=== PATIENT | female | born 1975 | race Two or more races ===

== ENCOUNTER 2025-07-01 04:07 | Emergency (ER) | payer MEDICAID, SELFPAY ==
[2025-07-01 04:25] VITALS: BP 131/75; PULSE 90; RESP 19; TEMP 36.9; O2SAT 96
--- NOTE | 2025-07-01 05:04 | PD.EDANX ---
ED Anxiety RME/HPI General Chief Complaint: General Adult/Misc Complain Stated Complaint: FEELS LIKE SOMTHING IN MY HEAD BOOM, BOOM, BOOM Time Seen by Provider: 07/01/25 04:59 Arrival date/time: 07/01/25 04:07 49F with history of anxiety and marijuana use presents to ED with heart palps, insomnia, and pulsating in head, after patient started taking venlafaxine and trazadone several days ago. Patient denies any pain. Limitations: no limitations Related Data Home Medications ?Medication ?Instructions ?Recorded ?Confirmed escitalopram oxalate 10 mg tablet 10 mg PO QDAY 04/29/19 04/29/19 Previous Rx's ?Medication ?Instructions ?Recorded cephalexin 500 mg capsule 500 mg PO QID #30 caps 12/18/22 Allergies Allergy/AdvReac Type Severity Reaction Status Date / Time No Known Allergies Allergy Verified 07/01/25 04:20 Review of Systems Review of Systems Systems Reviewed: All systems reviewed, normal except as documented Cardiovascular Cardiovascular: Reports as per HPI and Reports palpitations Psychiatric Psychiatric: Reports other (insomnia) Endocrine Endocrine: Reports palpitations Past Medical History Past Medical History CARDIAC: Negative Cardiac Disorders or Congestive Heart Failure RESPIRATORY: Negative Chronic Obstructive Pulmonary Disease (COPD) or Asthma GENITOURINARY: Negative Renal Disease ENDOCRINE: Negative Diabetes Mellitus Type 1 or Diabetes Mellitus Type 2 HEMATOLOGIC: Negative Sickle Cell Disease Family History FAMILY HISTORY: Negative Family Neurologic Problems, Family Psychiatric Problems, Family Respiratory Disorders, Family Cardiac Disorders, Family Gastrointestinal Problems, Family Cancer, Family Surgery or Family Anesthesia Reaction Social History SMOKING STATUS: Never smoker SECOND HAND EXPOSURE: No SUBSTANCE USE: does not use ED Exam General Limitations: Present no limitations General appearance: Present alert, in no apparent distress and anxious Head Head exam: Present atraumatic ENT ENT exam: Present normal exam, normal oropharynx and mucous membranes moist Neck Neck exam: Present normal inspection, full ROM and trachea midline Chest Chest inspection: Present normal inspection and symmetric chest wall rise Cardiovascular Cardiovascular exam: Present regular rate, normal rhythm and normal heart sounds Neurological Exam Neurological exam: Present alert, oriented X3 and CN II-XII intact Psychiatric Psychiatric exam: Present normal affect and anxious Skin Skin exam: Present warm, dry, intact and normal color Course Quality Measures none Orders Category Date Time Status Diazepam [Valium] Med 07/01/25 05:00 Once 5 mg PO X1 ONE Vital Signs Vital signs: Vital Signs Temperature 98.4 F 07/01/25 04:25 Pulse Rate 90 07/01/25 04:25 Respiratory Rate 19 07/01/25 04:25 Blood Pressure 131/75 H 07/01/25 04:25 Pulse Oximetry (%) 96 07/01/25 04:25 Oxygen Delivery Method Room Air 07/01/25 04:25 Anxiety MDM Narrative MDM Narrative: 49F with history of anxiety and marijuana use presents to ED with heart palps, insomnia, and pulsating in head, after patient started taking venlafaxine and trazadone several days ago. Patient denies any pain. Physical exam reveals normal pupil response and EOM. CN II-XII grossly intact. Neg pronator drift test. RRR. Speech normal. Gait normal. Patient is afebrile, alert, but anxious. Likely adverse drug effect. Meds and high school guidance counselor given. Patient data External records reviewed:: [facility] previous records Clinical information provided by:: patient Social determinants that could affect healthcare access:: substance use Patient has the following chronic illnesses:: drug/anxiety How is presenting disease/condition affected by chronic disease/condition?: exacerbated by Evaluation data The following diagnostics were reviewed and interpreted by me:: other (specify) (none) Lab and/or radiology exams considered but not ordered:: not ordered Interpretation Summary: n/a Medications / Prescriptions Medications or Prescriptions considered but not ordered:: ordered Medication administrations:: Medication Administration History Diazepam (Diazepam 5 Mg Tablet) 5 mg PO X1 ONE Stop: 07/01/25 05:01 Consultations Consultation(s) initiated? (list below): No Diagnosis Differential diagnosis anxiety: hyperventilation, panic disorder, acute anxiety and other (drug adverse effect) Most likely diagnosis given after review of the tests above:: drug adverse effect Admission Indicated Admission indicated?: not indicated Admission Request Was there a request for admission?: No Disposition Plan Disposition Plan: Discharge Discharge Attestation Discharge Attestation: The patient and all family members were given an opportunity to ask questions and understood the discharge instructions. Discharge instructions specifically effects, indications for sooner follow up or return to the emergency department, and the expected course of current diagnosis. Patient condition: Stable Discharge Plan Plan Patient Disposition: HOME (Self Care) Discharge Disposition comment: Stable Prescriptions/Referrals Prescriptions/Med Rec: No Action escitalopram oxalate 10 mg Tablet 10 mg PO QDAY cephalexin 500 mg capsule 500 mg PO QID Qty: 30 0RF Problem List Clinical Impression: Adverse drug effect Patient/Caregiver Discharge Instructions Education Materials: ED Drug Reaction, Other Additional Instructions: Please follow-up with PCP within 24-48 hours and return immediately if symptoms worsen. Print Language: Citizen Of [place] Stand Alone Forms: Patient Portal Info Letter PA/POLICE DEPARTMENT SECRETARY Supervising Physician PA/POLICE DEPARTMENT SECRETARY Supervising Physician: Dr. Herman
[2025-07-01] MEDS: DIAZEPAM 5 MG TABLET PO (05:15)
== END 2025-07-01 05:20 | disposition home or self-care (01) ==
LOC: SERX 05:02
PROVIDERS: Emergency Provider Emergency Medicine; PCP Obstetrics & Gynecology
DX: G47.00 Insomnia, unspecified (principal); R00.2 Palpitations; R51.9 Headache, unspecified; T43.215A Adverse effect of selective serotonin and norepinephrine reuptake inhibitors, initial encounter
CPT/HCPCS: 99281; A9270